=== PATIENT | female | born 1980 | race Caucasian/White ===

== ENCOUNTER 2017-11-07 10:10 | Inpatient (IN) ==
[2017-11-07] MEDS ORDERED: CeFAZolin Premix DUPLEX 2,000 MG/50 ML BAG IVPB ONE (10:35)
[2017-11-07] MEDS ORDERED: Ringers Solution, Lactated 1,000 ML IVC ONE (10:35)
[2017-11-07] MEDS ORDERED: Metoclopramide 10 MG/2 ML VIAL IVP ONE (10:35)
[2017-11-07] MEDS ORDERED: Famotidine 20 MG/2 ML VIAL IVP ONE (10:35)
[2017-11-07] MEDS ORDERED: Ringers Solution, Lactated 1,000 ML IVC SCH ×2 (10:45→15:39)
[2017-11-07 11:06] LABS: Basophils % 0.3 %; Eosinophils # 0.1 K/mcL (0.0-0.6); Eosinophils % 1.1 %; Hematocrit 29.8 % (35.3-44.9); Hemoglobin 10.2 g/dL (11.5-15.4); Immature Granulocytes % 1.4 % (0-4); Lymphocytes # 1.7 K/mcL (0.6-4.6); Lymphocytes % 19.1 %; Mean Corpuscular HGB Conc 34.2 g/dL (31.6-35.5); Mean Corpuscular Hemoglobin 30.1 pg (28.0-33.3); Mean Corpuscular Volume 87.9 fL (83.0-100.0); Mean Platelet Volume 9.4 fL (9.4-12.4); Monocytes # 0.7 K/mcL (0.0-1.3); Monocytes % 7.7 %; Neutrophils # 6.2 K/mcL (1.6-8.9); Platelet Count 181 K/mcL (140-400); Red Blood Count 3.39 M/mcL (3.82-4.97); Segmented Neutrophils % 70.4 %
--- NOTE | 2017-11-07 11:26 | Anesthesia Evaluation PreOp ---
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 Any Significant HX Other Medical History: Other (Anxiety, Full placenta previa) Anesthesia History: No Prior Anesthetic Complications, Past Anesthesia (ventral hernia repair upper abdomen) : Yes Alcohol Use: none Drug use: none Medications and Allergies Ibuprofen [Motrin] 600 mg PO TID PRN #20 tablet 03/15/15 [Rx] Pnv95/Ferrous Fumarate/FA [ Vitamin Tablet] 1 each PO DAILY 11/07/17 [ History] 3 Allergy/AdvReac Type Severity Reaction Status Date / Time acetaminophen [From Vicodin] Allergy Hives Verified 05/08/17 14:05 hydrocodone [From Vicodin] Allergy Hives Verified 05/08/17 14:05 - Meds/Allergy Pre-op Review Medications Reviewed: Yes Allergies Reviewed: Yes Beta Blockers on Current Med List: No Anesthesia Results - Labs 11/07/17 10:36 Anesthesia Exam BP 109/73 P 112 T 97.5 R 16 Height: 5'2" Weight: 77.4kg NPO (# of Hours): 12 Pain Scale: 0 Pain Scale Used: Numeric (1 - 10) - HEENT Pupil (Motor): Pupils equal Mallampati: II Teeth: Missing Oral Opening: Greater than 3 - TELEVISION MAINTENANCE WORKER LOC: Oriented TELEVISION MAINTENANCE WORKER Motor: Normal RUE, Normal LUE, Normal RLE, Normal LLE, Normal Face TELEVISION MAINTENANCE WORKER Sensory: Normal: RUE, LUE, RLE, LLE, Face - Cardiac Rhythm: Regular Murmur: None JVD: No Carotid Bruit: No - Pulmonary Breath Sounds: bilateral Clear Respiratory Effort: Symmetrical Anesthesia Assess/Plan ASA Score: 2 Modified Dennise Scale for Level of Consciousness: Cooperative, oriented, and tranquil Anesthetic Plan: Regional Autologous Blood: Yes Monitoring Plan: Standard Monitors Recovery Plan: PACU
--- NOTE | 2017-11-07 11:40 | OB/GYN History & Physical ---
Date of Encounter: 11/07/17 Time of Encounter: 11:38 Assessment and Plan (1) and not yet delivered in third trimester Current visit: Yes Status: Acute (2) 37 weeks gestation of Current visit: Yes Status: Acute (3) Complete placenta previa nos or without hemorrhage, third trimester Current visit: Yes Status: Acute Patient will be scheduled for a primary low transverse section (4) Advanced maternal age (AMA) in Current visit: Yes Status: Acute History of Present Illness HPI: Ms. Martines is a 37 year old female 5 para 4014 at 37-2/7 weeks who presented for primary low transverse section secondary to complete previa. Patient is being followed by maternal medicine and they recommended patient be delivered at 37 weeks. She has had no bleeding during this and no contractions patient is wanting a tubal ligation she has signed tubal papers the risks and benefits of the tubal ligation had been explained to patient with failure rate of 5-8 per thousand with increased risk of ectopic if was to occur. Patient is Rh+, rubella positive, GBS negative, Varicella negative Past Med Surg Social Fam HX - Past Medical History Source: patient, old records reviewed Medical history: no medical history Additional medical history: asthma Psychiatric history: anxiety, depression, prior suicide attempt, previous psychiatric hospitalization - Past Surgical History Surgical History: non-contributory Additional surgical history: Hernia repair, teeth extraction - Social History Smoking Status: Never smoker Smokeless Tobacco Status: No Alcohol use: none Drug use: none Occupational status: unemployed Current living situation: Home - Independent Activity Level: Independent ambulation Recent Out of Country Travel Within the Last 8 Weeks: No Exposure or Possible Exposure to Illness During Travel: No - Additional Family History Additional family history: Family history noncontributory Obstetrical History - Pregnancies : 5 Para: 4 Term: 4 : 0 Ab's: 1 Livin Medications and Allergies Ibuprofen [Motrin] 600 mg PO TID PRN #20 tablet 03/15/15 [Rx] Pnv95/Ferrous Fumarate/FA [ Vitamin Tablet] 1 each PO DAILY 11/07/17 [ History] 3 Allergy/AdvReac Type Severity Reaction Status Date / Time acetaminophen [From Vicodin] Allergy Hives Verified 05/08/17 14:05 hydrocodone [From Vicodin] Allergy Hives Verified 05/08/17 14:05 Review of System OB All systems PM: reviewed and no additional remarkable complaints except as stated Exam - Constitutional Constitutional: well developed, well nourished, no acute distress, average body habitus - HEENT HEENT: EOMI, PERRL, Mucus Membranes Moist - Neck Neck exam: full ROM - Lungs Respiratory exam: CTAB - Cardiovascular Cardiovascular exam: RRR - Cervix Dilation: 0 Effacement: 50 Station: -3 Results Result Diagrams: 11/07/17 10:36 Abnormal lab results RBC 3.39 M/mcL (3.82-4.97) L 11/07/17 10:36 Hgb 10.2 g/dL (11.5-15.4) L 11/07/17 10:36 Hct 29.8 % (35.3-44.9) L 11/07/17 10:36 All other labs normal.
[2017-11-07] MEDS ORDERED: *HR* Morphine Sulfate/PF 10 MG/10 ML AMPUL ONE (12:12)
[2017-11-07] MEDS ORDERED: *HR* Phenylephrine 10 MG/ML VIAL ONE (12:14)
[2017-11-07] MEDS ORDERED: Lidocaine -MPF 2% 5 ML VIAL ONE (12:18)
[2017-11-07] MEDS ORDERED: Bupivacaine/PF 0.75% in Dex 2 ML AMPUL INFILT ONE (12:19)
[2017-11-07] MEDS ORDERED: Acetaminophen IV 1,000 MG/100 ML INFUS..BTL IVPB STA (12:28)
[2017-11-07] MEDS ORDERED: Ibuprofen 400 MG TABLET PO PRN (12:29)
[2017-11-07] MEDS ORDERED: *HR* HYDROmorphone (PF) 1 MG/ML SYRINGE IVP PRN (12:29)
[2017-11-07] MEDS ORDERED: *HR* Morphine 2 MG/ML SYRINGE IVP PRN (12:29)
[2017-11-07] MEDS ORDERED: *HR* OxyCODONE/APAP 5/325 TABLET PO PRN (12:29)
[2017-11-07] MEDS ORDERED: *HR* Magnesium Sulfate 1 GM/2 ML VIAL ONE (12:32)
[2017-11-07] MEDS ORDERED: Naloxone 0.4 MG/ML INJ IVP PRN (12:36)
[2017-11-07] MEDS ORDERED: Ondansetron 4 MG/2 ML VIAL IVP PRN ×2 (12:36→15:39)
[2017-11-07] MEDS ORDERED: Ringers Solution, Lactated 1,000 ML ONE (12:37)
--- NOTE | 2017-11-07 12:53 | Anesthesia Procedures ---
Date of Encounter: 11/07/17 Time of Encounter: 12:51 Procedures: Anesthesia - Epidural/Spinal Patient ID/Chart reviewed: Yes Patient examined: Yes OB Eval: Gestational age: 37.2 OB Eval: : 5 OB Eval: Hx Para: 4 Consent Obtained: Yes Site Prep: Aseptic Technique, Sterile prep and drape, Povidone-Iodine 1% Patient position: upright Local Anesthetic: Lidocaine 1% Amount of Local Anesthetic used: 3 Interspace Used: L4-L5 Loss of Resistance (ZACHARY): No Blood: No CSF: Yes Paresthesia: No Spinal Needle Gauge: 25 Spinal Dose: Bupivicaine 0.75% 1.4ml morphine 250mcg Procedure: Intrathecal dose administered 1st pass in upright position without any immediate noted complications. VSS throughout. Level T4 Vitals + FHT's: See anesthesia record
[2017-11-07] MEDS ORDERED: Dexamethasone 4 MG/ML VIAL ONE (13:00)
[2017-11-07] MEDS ORDERED: Ondansetron 4 MG/2 ML VIAL ONE (13:00)
[2017-11-07] MEDS ORDERED: Oxytocin 20 units/ LR 1000 mL 20 UNIT/1,000 ML BAG IVC ONE (13:30)
--- NOTE | 2017-11-07 13:34 | OB/GYN Procedure Note ---
Section - Date of procedure: 11/07/17 Preop diagnosis: desires repeat , other (Intrauterine at 37-2 /7 weeks, complete placenta previa, desires sterilization) Post-op diagnosis: same Procedure: primary low transverse, bilateral tubal ligation Surgeon: Tanner Orantes Blood Loss: 1,000 Was there an medical assistant per diem present: Yes Covered Buckle Assembler: Francisco Cespedes (OMS 3) Anesthesiologist: Urmila Elizondo Quick Print Operator: Jac Izaguirre Anesthesia Type: Spinal section complications: none Disposition: L&D Recovery Room Specimens: Right tube segment, Left tube segment - Infant (s) Infant A Infant Delivery Date: 11/07/17 Delivery Time: 12:43 Presentation: vertex Position: KELLY Route of delivery: Gender: Male Viability: Viable Pounds: 7 Ounces: 4 Gram Weight: 3.28 kg at 1 minute: 7 at 5 minutes: 9 Shoulder Dystocia: not encountered Placenta: spontaneous Cord: 3 umbilical vessels - Narrative Narrative: Patient is a 37-year-old 5 para 4 37-2/7 weeks who presented for primary low transverse section secondary to complete placenta previa patient has been followed by maternal medicine and they wanted to be delivered at 37 weeks patient has had no bleeding or cramping during this patient wanted a tubal ligation risks and benefits of the tubal were expanded to the patient with a failure rate of 5-8 per thousand with increased risk of ectopic if was to occur. Procedure: Patient was taken to the operating room where spinal anesthesia was found be adequate. She was placed in the dorsal supine position with leftward tilt prepped and draped in usual fashion. Timeout was then obtained. Pfannenstiel incision was made with a scalpel carried down to the underlying tissue to the fascia was then applied. The fascia was nicked in midline extended laterally with the Madrid scissors. The superior and inferior edges of the fascia were grasped tented up and dissected off the rectus muscles. Rectus muscles were in the midline parietal peritoneum was identified tented up and entered sharply. This is extended superiorly inferiorly with Metzenbaum scissors. The bladder blade was inserted the vesicouterine peritoneum was identified tented up and entered sharply. This was extended laterally the bladder flap created digitally. The lower uterine segment was incised with a scalpel extended laterally with digital manipulation. We did go through the anterior edge of the placenta but we were able to get around it we then delivered the infant the cord was clamped and cut and was handed off to waiting pediatric team. Cord blood was not needed at this time percent was then delivered spontaneously 3 vessels cord. Uterus was exteriorized cleaned of all clots and debris. The lower uterine segment was then closed using 0 Vicryl in a running locking stitch prior to the closure. Good hemostasis was noted patient presented to the fallopian tubes each tube was grasped at the ampullar region and a 2 cm portion of the tube was then suture ligated with 0 plain including the fimbria this was suture ligated 2 and the knuckle was excised. This was repeated on the opposite side in a similar fashion. Good hemostasis was noted bilaterally both ovaries are normal. The uterus was returned to the abdomen the gutters were cleaned of all clots and debris and copiously irrigated with water. No active bleeding was noted. The fascia was then closed using a #1 stratafix in a running stitch and then the skin was closed using a 4-0 Vicryl in subcuticular manner. All needles lap sponge counts were correct 3 patient did receive preoperative antibiotics. She was taken to the recovery room and will be observed for 2 hours before being taken floor.
--- NOTE | 2017-11-07 14:25 | Anesthesia Evaluation Post Op ---
Date of Encounter: 11/07/17 Time of Encounter: 14:20 - Vital Signs Vital Signs: BP 89/61 P 97 T 97.2 R 16 - Lungs Lungs: Clear Ascult./Percussion - Airway Airway: Non-obstructed - Cardiovascular Regular Rate - Mental Status Mental Status: Alert & Oriented, Answers Appropriately - Pain Pain Scale: 2 Pain Scale used: Numeric (1 - 10) - Nausea Vomiting Nausea Vomiting: Responds to treatment with oral meds - Hydration Hydration: NPO, Bradshaw catheter - Discharge PostOp Status: Transfer Patient to floor
[2017-11-07] MEDS ORDERED: *HR* OxyCODONE Immed Rel 5 MG TABLET PO PRN (15:39)
[2017-11-07] MEDS ORDERED: Metoclopramide 10 MG/2 ML VIAL IVP PRN (15:39)
[2017-11-07] MEDS ORDERED: Oxytocin 20 units/ LR 1000 mL 20 UNIT/1,000 ML BAG IVC SCH (15:39)
[2017-11-07] MEDS ORDERED: Sennosides 8.6 MG TABLET PO PRN (15:39)
[2017-11-07] MEDS ORDERED: Simethicone 80 MG TAB.CHEW PO PRN (15:39)
[2017-11-07] MEDS: *HR* OxyCODONE/APAP 5/325 TABLET PO PRN (22:52)
[2017-11-07] MEDS: Ibuprofen 600 MG TABLET PO PRN (22:53)
[2017-11-08 07:00] LABS: Basophils % 0.1 %; Eosinophils # 0.1 K/mcL (0.0-0.6); Eosinophils % 0.4 %; Hematocrit 23.1 % (35.3-44.9); Immature Granulocytes % 1.6 % (0-4); Lymphocytes # 2.5 K/mcL (0.6-4.6); Mean Corpuscular HGB Conc 34.2 g/dL (31.6-35.5); Mean Corpuscular Hemoglobin 30.9 pg (28.0-33.3); Mean Corpuscular Volume 90.2 fL (83.0-100.0); Mean Platelet Volume 9.7 fL (9.4-12.4); Monocytes % 7.7 %; Neutrophils # 9.4 K/mcL (1.6-8.9); Platelet Count 177 K/mcL (140-400); Red Blood Count 2.56 M/mcL (3.82-4.97); Red Cell Distribution Width 13.6 % (11.5-14.5); Segmented Neutrophils % 71.2 %
[2017-11-08 07:02] LABS: Hemoglobin 7.9 g/dL (11.5-15.4)
[2017-11-08] MEDS: Prenatal Vit/FA 1 EACH TABLET PO SCH (08:09)
[2017-11-08] MEDS: *HR* OxyCODONE/APAP 5/325 TABLET PO PRN ×4 (08:10→23:38)
--- NOTE | 2017-11-08 09:10 | OB/GYN Progress Note ---
Date of Encounter: 11/08/17 Time of Encounter: 09:08 - Assessment and Plan (1) Status post primary low transverse section Current Visit: Yes Status: Acute Continue routine care Abdominal binder as needed Anticipate discharge home tomorrow (2) anemia Current Visit: Yes Status: Acute Increase iron to twice daily Subjective - Subjective Principal diagnosis: s/p PLTCS Interval history: Feeling well. Out of bed without dizziness. Using abdominal binder. Cramping minimal, using ibuprofen and Percocet. Would like to try and breast-feed today. Has not voided yet. Passing flatus, no BM yet. Tolerating regular diet. Patient reports: appetite normal, pain well controlled, ambulating normally, no voiding normally : doing well, bottle feeding Objective - Vital Signs Latest vital signs: Vital Signs Temp Pulse Pulse Resp BP Pulse Ox 11/08/17 08:42 97.6 F 98 18 99/64 97 11/08/17 04:00 98.5 F 95 16 102/67 98 11/08/17 00:00 98.7 F 97 14 98/60 98 11/07/17 20:10 98.4 F 89 14 106/70 99 11/07/17 19:01 98.2 F 92 92 16 110/70 98 11/07/17 19:00 98.2 F 92 16 110/70 98 11/07/17 17:54 97.9 F 100 100 16 108/75 99 11/07/17 17:45 97.9 F 100 16 108/75 99 11/07/17 16:45 98.4 F 88 14 106/76 98 11/07/17 16:20 97.6 F 93 16 107/76 98 11/07/17 16:15 97.6 F 93 16 107/76 98 11/07/17 15:45 97.4 F L 95 16 104/70 97 Intake and Output 11/07/17 11/08/17 11/08/17 23:59 07:59 15:59 Intake Total 240 / 240 Output Total 850 / 850 300 / 300 Balance -850 / -850 -60 / -60 Intake: Oral 240 / 240 Output: Catheter 850 / 850 300 / 300 Other: Weight 74.752 kg Patient Weight 11/08/17 23:59 Weight 74.752 kg - Exam Lungs: bilateral: normal Chest: Normal S1, Normal S2 Extremities: Present: normal Abdomen: Present: normal appearance, soft Incision: Present: normal, dry, dressed Uterus: Present: normal, firm Fundal Height: 0 - Labs Labs: Laboratory Results - last 24 hr 11/07/17 11/07/17 11/08/17 10:36 10:44 06:39 WBC 8.8 13.2 H RBC 3.39 L 2.56 L Hgb 10.2 L 7.9 L D Hct 29.8 L 23.1 L MCV 87.9 90.2 MCH 30.1 30.9 MCHC 34.2 34.2 RDW 14.0 13.6 Plt Count 181 177 MPV 9.4 9.7 Immature Gran % 1.4 1.6 Seg Neutrophils % 70.4 71.2 Lymphocytes % 19.1 19.0 Monocytes % 7.7 7.7 Eosinophils % 1.1 0.4 Basophils % 0.3 0.1 Neutrophils # 6.2 9.4 H Lymphocytes # 1.7 2.5 Monocytes # 0.7 1.0 Eosinophils # 0.1 0.1 Basophils # 0.0 0.0 Blood Type B POSITIVE Antibody Screen NEGATIVE Crossmatch See Detail
[2017-11-08] MEDS: Ibuprofen 600 MG TABLET PO PRN (19:46)
[2017-11-09] MEDS: *HR* OxyCODONE/APAP 5/325 TABLET PO PRN ×2 (03:53→07:58)
[2017-11-09] MEDS: Prenatal Vit/FA 1 EACH TABLET PO SCH (07:58)
[2017-11-09 08:23] VITALS: BP 125/82
--- NOTE | 2017-11-09 08:30 | Discharge Summary ---
Date of Encounter: 11/09/17 Time of Encounter: 08:25 - Discharge Diagnosis (1) History of bilateral tubal ligation Priority: Secondary Status: Acute Comments: continue routine postop care (2) anemia Priority: Secondary Status: Acute Comments: continue ferrous sulfate daily (3) Status post primary low transverse section Priority: Primary Status: Acute Comments: Continue routine /postop care discharge home today follow up with Dr. Baker in 2 weeks for incision check (4) Breast feeding status of mother Priority: Secondary Status: Acute Comments: support prn - Discharge Medications Prescriptions: OxyCODONE/APAP 5/325 [Percocet 5/325 MG] 1 each PO Q4HR PRN 5 Days #30 tablet PRN Reason: Moderate pain 4-6 Ibuprofen [Motrin] 600 mg PO Q6HR PRN #60 tablet PRN Reason: Cramping Breast Pump [BREAST PUMP] 1 each .ROUTE AD #1 each Ferrous Sulfate 325 mg PO BIDWM #60 tablet Home Medications: Ibuprofen [Motrin] 600 mg PO TID PRN #20 tablet 03/15/15 [Rx] Pnv95/Ferrous Fumarate/FA [ Vitamin Tablet] 1 each PO DAILY 11/07/17 [ History] Breast Pump [BREAST PUMP] 1 each .ROUTE AD #1 each 11/09/17 [Rx] Docusate [Colace] 100 mg PO BID capsule 11/09/17 [Rx] Ferrous Sulfate 325 mg PO BIDWM #60 tablet 11/09/17 [Rx] Ibuprofen [Motrin] 600 mg PO Q6HR PRN #60 tablet 11/09/17 [Rx] OxyCODONE/APAP 5/325 [Percocet 5/325 MG] 1 each PO Q4HR PRN 5 Days #30 tablet [Rx] Vit/FA 1 each PO DAILY tablet 11/09/17 [Rx] Allergies/Adverse Reactions: 3 Allergy/AdvReac Type Severity Reaction Status Date / Time acetaminophen [From Vicodin] Allergy Hives Verified 05/08/17 14:05 hydrocodone [From Vicodin] Allergy Hives Verified 05/08/17 14:05 Data Procedures and tests throughout hospitalization: Laboratory Tests 11/07/17 11/07/17 11/08/17 10:36 10:44 06:39 WBC 8.8 13.2 H RBC 3.39 L 2.56 L Hgb 10.2 L 7.9 L D Hct 29.8 L 23.1 L MCV 87.9 90.2 MCH 30.1 30.9 MCHC 34.2 34.2 RDW 14.0 13.6 Plt Count 181 177 MPV 9.4 9.7 Immature Gran % 1.4 1.6 Seg Neutrophils % 70.4 71.2 Lymphocytes % 19.1 19.0 Monocytes % 7.7 7.7 Eosinophils % 1.1 0.4 Basophils % 0.3 0.1 Neutrophils # 6.2 9.4 H Lymphocytes # 1.7 2.5 Monocytes # 0.7 1.0 Eosinophils # 0.1 0.1 Basophils # 0.0 0.0 Blood Type B POSITIVE Antibody Screen NEGATIVE Crossmatch See Detail Date of admission: 11/07/17 10:10 Primary care physician: Salvador Stevens MD Discharging clinician: Anay Bailey Anticipated date of discharge: 11/09/17 - Patient Status Disposition: Home, Self-Care Condition: Good Functional capacity at discharge: independent ambulation - Discharge Instructions Follow Up With: Salvador Stevens MD [Primary Care Provider] - Tanner Baker DO [Partnered Physician] - - Diet and Activity Activity: increase activity as tolerated Diet: regular diet Hospital Course Reason for admission: section Delivery: section Other procedures: tubal ligation complications: none Discharge diagnosis: IUP at term delivered baby: male (breast feeding) Time Attestation: Total time spent providing and/or coordinating discharge services: Time Spent: Less than 30 minutes - VTE Documentation of Mechanical Device: Intermittent pneumatic compression device Exam - Constitutional Vitals: Temp Pulse Resp BP Pulse Ox 98.2 F 87 14 125/82 100 11/09/17 08:23 11/09/17 08:23 11/09/17 08:23 11/09/17 08:23 11/09/17 08:23 General appearance IM: A&O X 3, pleasant, answers questions appropriately - Respiratory Respiratory exam: Present: CTAB - Cardiovascular Cardiovascular exam IM: Present: RRR, +S1, +S2 - GI/Abdominal GI/Abdominal exam IM: normal bowel sounds Incision: normal, dry, intact - Uterine Tone: Firm Uterus Position: 2 Fingers Below Umbilicus, Midline - Extremities Exam Extremities exam IM: Present: full ROM, normal capillary refill, normal inspection - Neurological Exam Neurological exam: alert, oriented X3, reflexes normal
== END 2017-11-09 12:58 | disposition home or self-care (01) | DRG 540 ==
LOC: 1NENULAB 10:10 → 1NENUOBS 15:38
PROVIDERS: ADMIT Obstetrics & Gynecology; ATTEND Obstetrics & Gynecology

== ENCOUNTER 2021-10-17 08:27 | Observation (INO) ==
[2021-10-17] MEDS ORDERED: *HR* Adenosine 6 MG/2 ML VIAL IVP ONE ×2 (08:41→08:48)
[2021-10-17] MEDS ORDERED: *HR* Adenosine 6 MG/2 ML SYRINGE IVP ONE (08:41)
[2021-10-17] MEDS ORDERED: 0.9 % Sodium Chloride 1,000 ML IV ONE (08:48)
[2021-10-17] MEDS ORDERED: Ondansetron 4 MG/2 ML VIAL IVP ONE (08:48)
[2021-10-17] MEDS ORDERED: Morphine Sulfate 2 MG/ML SYRINGE IVP ONE ×2 (08:53→10:17)
[2021-10-17] MEDS ORDERED: Aspirin 325 MG TABLET PO ONE (08:53)
[2021-10-17] MEDS ORDERED: diazePAM 10 MG/2 ML SYRINGE IVP ONE (08:54)
[2021-10-17 09:01] LABS: Basophils % 0.4 %; Eosinophils # 0.1 K/mcL (0.0-0.6); Eosinophils % 0.8 %; Hematocrit 39.5 % (35.3-44.9); Hemoglobin 12.8 g/dL (11.5-15.4); Immature Granulocytes % 0.7 % (0-4); Lymphocytes # 2.8 K/mcL (0.6-4.6); Lymphocytes % 26.6 %; Mean Corpuscular HGB Conc 32.4 g/dL (31.6-35.5); Mean Corpuscular Hemoglobin 29.7 pg (28.0-33.3); Mean Corpuscular Volume 91.6 fL (83.0-100.0); Mean Platelet Volume 10.5 fL (9.4-12.4); Neutrophils # 6.7 K/mcL (1.6-8.9); Nucleated Red Blood Cells 0.3 /100 WBC (0); Platelet Count 202 K/mcL (140-400); Red Blood Count 4.31 M/mcL (3.82-4.97); Red Cell Distribution Width 13.3 % (11.5-14.5); Segmented Neutrophils % 62.5 %; White Blood Count 10.7 K/mcL (4.3-11.1)
[2021-10-17 09:22] LABS: Alanine Aminotransferase 180 Units/L (7-52); Albumin 3.9 g/dL (3.5-5.7); Albumin/Globulin Ratio 1.6 (1.1-2.2); Alkaline Phosphatase 125 Units/L (34-104); Aspartate Amino Transferase 165 Units/L (13-39); BUN/Creatinine Ratio 14 (6-26); Bilirubin,Total 0.5 mg/dL (0.3-1.0); Blood Urea Nitrogen 20 mg/dL (6-20); Calcium 8.4 mg/dL (8.6-10.3); Carbon Dioxide 19 mEq/L (23-29); Chloride 108 mEq/L (98-107); Globulin 2.5 g/dL (2.4-3.5); Glucose 132 mg/dL (70-105); Magnesium 2.1 mg/dL (1.6-2.6); Osmolality,Calculated 294 (280-300); Potassium 3.8 mEq/L (3.5-5.1); Sodium 140 mEq/L (136-145); Total Protein 6.4 g/dL (6.4-8.9); eGFR For African Americans 49 (> 60); eGFR For Non-African Americans 41 (> 60)
[2021-10-17 09:33] LABS: Troponin I 0.08 ng/mL (< 0.04)
[2021-10-17] MEDS ORDERED: Iopamidol - 370 500 ML MLS IVP ONE (10:17)
[2021-10-17] MEDS ORDERED: Ondansetron 4 MG/2 ML VIAL IVP PRN (10:31)
[2021-10-17] MEDS ORDERED: Naloxone 0.4 MG/ML INJ IVP PRN (10:31)
[2021-10-17] MEDS ORDERED: *HR* Heparin 5,000 UNIT/ML VIAL IVP PRN ×2 (10:32)
[2021-10-17] MEDS ORDERED: Perflutren Lipid Microsphere 1.3 ML in 0.9 % Sodium Chloride 8.7 ML IVP PRN (10:32)
[2021-10-17] MEDS ORDERED: ALPRAZolam 0.5 MG TABLET PO PRN (10:33)
[2021-10-17 11:04] LABS: Ethanol < 10 mg/dL (Less than 10)
[2021-10-17] MEDS: Heparin 25,000UNIT/250ML 1/2NS 25,000 UNIT/250 ML IV.SOLN IVC SCH (11:45)
[2021-10-17] MEDS: Furosemide 20 MG/2 ML VIAL IVP SCH (11:46)
[2021-10-17 13:08] LABS: Amphetamine Screen,Urine Negative ng/mL (Cutoff=1000); Barbiturate Screen,Urine Negative ng/mL (Cutoff=200); Benzodiazepines Screen,Urine Negative ng/mL (Cutoff=200); Cannabinoid Screen,Urine Negative ng/mL (Cutoff = 50); Cocaine Screen,Urine Negative ng/mL (Cutoff= 300); Opiate Screen,Urine Positive ng/mL (Cutoff=300); Phencyclidine Screen,Urine Negative ng/mL (Cutoff=25)
[2021-10-18 01:38] LABS: Basophils % 0.5 %; Eosinophils # 0.3 K/mcL (0.0-0.6); Eosinophils % 4.2 %; Hematocrit 36.2 % (35.3-44.9); Hemoglobin 11.8 g/dL (11.5-15.4); Immature Granulocytes % 0.9 % (0-4); Lymphocytes # 2.4 K/mcL (0.6-4.6); Mean Corpuscular HGB Conc 32.6 g/dL (31.6-35.5); Mean Corpuscular Hemoglobin 29.6 pg (28.0-33.3); Mean Corpuscular Volume 90.7 fL (83.0-100.0); Mean Platelet Volume 10.1 fL (9.4-12.4); Monocytes # 0.5 K/mcL (0.0-1.3); Monocytes % 6.2 %; Neutrophils # 4.6 K/mcL (1.6-8.9); Platelet Count 171 K/mcL (140-400); Red Blood Count 3.99 M/mcL (3.82-4.97); Red Cell Distribution Width 13.3 % (11.5-14.5); Segmented Neutrophils % 58.2 %; White Blood Count 7.9 K/mcL (4.3-11.1)
[2021-10-18 02:12] LABS: BUN/Creatinine Ratio 16 (6-26); Blood Urea Nitrogen 19 mg/dL (6-20); Calcium 7.8 mg/dL (8.6-10.3); Carbon Dioxide 22 mEq/L (23-29); Chloride 110 mEq/L (98-107); Glucose 89 mg/dL (70-105); Magnesium 2.2 mg/dL (1.6-2.6); Osmolality,Calculated 292 (280-300); Phosphorous 3.7 mg/dL (2.7-4.5); Potassium 3.9 mEq/L (3.5-5.1); Sodium 140 mEq/L (136-145); eGFR For African Americans > 60 (> 60); eGFR For Non-African Americans 51 (> 60)
[2021-10-18 02:13] LABS: Albumin 3.2 g/dL (3.5-5.7); Albumin/Globulin Ratio 1.3 (1.1-2.2); Bilirubin,Indirect 0.4 mg/dL (0.0-1.0); Bilirubin,Total 0.4 mg/dL (0.3-1.0); Globulin 2.4 g/dL (2.4-3.5); Total Protein 5.6 g/dL (6.4-8.9)
[2021-10-18] MEDS: Furosemide 20 MG/2 ML VIAL IVP SCH (07:45)
[2021-10-18] MEDS: Aspirin 81 MG TAB.CHEW PO SCH (07:45)
[2021-10-18] MEDS: Heparin 25,000UNIT/250ML 1/2NS 25,000 UNIT/250 ML IV.SOLN IVC SCH (09:59)
[2021-10-18 11:21] LABS: Adenovirus Not Detected (Not Detect); Bordetella Pertussis Not Detected (Not Detect); Chlamydophila pneumoniae Not Detected (Not Detect); Coronavirus 229E Not Detected (Not Detect); Coronavirus HKU1 Not Detected (Not Detect); Coronavirus NL63 Not Detected (Not Detect); Coronavirus OC43 Not Detected (Not Detect); Human Metapneumovirus Not Detected (Not Detect); Human Rhinovirus/Enterovirus Not Detected (Not Detect); Influenza A Subtype 2009 H1 Not Detected (Not Detect); Influenza B Not Detected (Not Detect); Mycoplasma pneumoniae Not Detected (Not Detect); Parainfluenza Virus 1 Not Detected (Not Detect); Parainfluenza Virus 2 Not Detected (Not Detect); Parainfluenza Virus 3 Not Detected (Not Detect); Parainfluenza Virus 4 Not Detected (Not Detect); Respiratory Syncytial Virus Not Detected (Not Detect); SARS-CoV-2 Not Detected (Not Detect)
[2021-10-18] MEDS: DilTIAZem CD (24hr) 120 MG CAP.ER.24H PO SCH (13:19)
[2021-10-18] MEDS ORDERED: Acetaminophen 325 MG TABLET PO PRN (16:49)
[2021-10-18] MEDS: *HR* Heparin 5,000 UNIT/ML VIAL SQ SCH (17:04)
[2021-10-19 01:03] LABS: Basophils % 0.3 %; Eosinophils # 0.2 K/mcL (0.0-0.6); Eosinophils % 3.2 %; Hematocrit 37.4 % (35.3-44.9); Hemoglobin 12.2 g/dL (11.5-15.4); Immature Granulocytes % 0.6 % (0-4); Lymphocytes # 1.8 K/mcL (0.6-4.6); Lymphocytes % 24.5 %; Mean Corpuscular HGB Conc 32.6 g/dL (31.6-35.5); Mean Corpuscular Hemoglobin 29.8 pg (28.0-33.3); Mean Corpuscular Volume 91.2 fL (83.0-100.0); Mean Platelet Volume 9.6 fL (9.4-12.4); Monocytes # 0.6 K/mcL (0.0-1.3); Monocytes % 7.8 %; Neutrophils # 4.6 K/mcL (1.6-8.9); Nucleated Red Blood Cells 0.3 /100 WBC (0); Platelet Count 182 K/mcL (140-400); Segmented Neutrophils % 63.6 %; White Blood Count 7.2 K/mcL (4.3-11.1)
[2021-10-19 01:25] LABS: BUN/Creatinine Ratio 18 (6-26); Blood Urea Nitrogen 22 mg/dL (6-20); Carbon Dioxide 22 mEq/L (23-29); Chloride 112 mEq/L (98-107); Glucose 96 mg/dL (70-105); Osmolality,Calculated 293 (280-300); Potassium 4.2 mEq/L (3.5-5.1); Sodium 140 mEq/L (136-145); eGFR For African Americans > 60 (> 60); eGFR For Non-African Americans 50 (> 60)
[2021-10-19] MEDS: *HR* Heparin 5,000 UNIT/ML VIAL SQ SCH (05:15)
[2021-10-19 06:51] VITALS: O2SAT 95
[2021-10-19] MEDS: DilTIAZem CD (24hr) 120 MG CAP.ER.24H PO SCH (08:30)
[2021-10-19] MEDS: Aspirin 81 MG TAB.CHEW PO SCH (08:30)
[2021-10-19] MEDS: Furosemide 20 MG/2 ML VIAL IVP SCH (08:30)
[2021-10-19 10:46] VITALS: BP 96/63; PULSE 92; TEMP 98.3
[2021-10-20] MEDS ORDERED: Furosemide 20 MG TABLET PO SCH (09:00)
== END 2021-10-19 14:24 | disposition home or self-care (01) ==
LOC: EMEROOARM 08:27 → 2NENU 08:27 → 2NNU 10:16 → 2ANU 10-18 23:07
PROVIDERS: ADMIT Internal Medicine; ATTEND Internal Medicine

== ENCOUNTER 2022-01-15 08:15 | Observation (INO) ==
[2022-01-15 08:43] LABS: Basophils % 0.5 %; Eosinophils # 0.3 K/mcL (0.0-0.6); Eosinophils % 3.4 %; Hematocrit 43.4 % (35.3-44.9); Hemoglobin 14.4 g/dL (11.5-15.4); Immature Granulocytes % 0.4 % (0-4); Lymphocytes # 2.8 K/mcL (0.6-4.6); Lymphocytes % 35.6 %; Mean Corpuscular HGB Conc 33.2 g/dL (31.6-35.5); Mean Corpuscular Hemoglobin 29.7 pg (28.0-33.3); Mean Corpuscular Volume 89.5 fL (83.0-100.0); Mean Platelet Volume 9.1 fL (9.4-12.4); Monocytes # 0.5 K/mcL (0.0-1.3); Monocytes % 6.8 %; Neutrophils # 4.3 K/mcL (1.6-8.9); Platelet Count 260 K/mcL (140-400); Red Blood Count 4.85 M/mcL (3.82-4.97); Red Cell Distribution Width 12.6 % (11.5-14.5); Segmented Neutrophils % 53.3 %
[2022-01-15 08:51] LABS: INR 1.1; Prothrombin Time 11.8 Seconds (9.4-12.1)
[2022-01-15 08:53] LABS: Activated Partial Thrombo Time 31.4 Seconds (26.0-36.0)
[2022-01-15 09:04] LABS: Calcium 9.1 mg/dL (8.6-10.3)
[2022-01-15 09:11] LABS: Troponin I 0.05 ng/mL (< 0.04)
[2022-01-15] MEDS ORDERED: *HR* Heparin 5,000 UNIT/ML VIAL IVP ONE ×2 (09:14→13:41)
[2022-01-15] MEDS ORDERED: *HR* Heparin 5,000 UNIT/ML VIAL IVP PRN ×3 (09:14→13:41)
[2022-01-15] MEDS ORDERED: Heparin 25,000UNIT/250ML 1/2NS 25,000 UNIT/250 ML IV.SOLN IVC SCH (09:15)
[2022-01-15] MEDS ORDERED: Aspirin 325 MG TABLET PO ONE (09:22)
[2022-01-15 09:33] LABS: Heparin anti-factor XA UFH < 0.04 IU/mL (0.30-0.70)
[2022-01-15 09:58] LABS: Hemoglobin 13.6 g/dL (11.5-15.4); Mean Corpuscular HGB Conc 33.2 g/dL (31.6-35.5); Mean Corpuscular Hemoglobin 29.6 pg (28.0-33.3); Mean Corpuscular Volume 89.3 fL (83.0-100.0); Mean Platelet Volume 9.2 fL (9.4-12.4); Platelet Count 261 K/mcL (140-400); Red Blood Count 4.59 M/mcL (3.82-4.97); Red Cell Distribution Width 12.6 % (11.5-14.5); White Blood Count 6.9 K/mcL (4.3-11.1)
[2022-01-15] MEDS ORDERED: Naloxone 0.4 MG/ML INJ IVP PRN (12:38)
[2022-01-15 13:21] LABS: Troponin I 0.05 ng/mL (< 0.04)
[2022-01-15] MEDS ORDERED: Nitroglycerin 0.4 MG TAB.SUBL SL PRN (13:42)
[2022-01-15 14:26] LABS: Chol/HDL Ratio 5.5 (0-4.9)
[2022-01-15] MEDS: DilTIAZem CD (24hr) 120 MG CAP.ER.24H PO SCH (14:35)
[2022-01-15] MEDS: Heparin 25,000UNIT/250ML 1/2NS 25,000 UNIT/250 ML IV.SOLN IVC SCH (14:38)
[2022-01-15 14:41] LABS: Estimated Average Glucose 103 mg/dl; Hemoglobin A1C 5.2 %
[2022-01-15] MEDS: Albumin 25% 25gram/100mL 25 GM/100 ML IV.SOLN IVPB SCH (14:46)
[2022-01-15] MEDS ORDERED: 0.9 % Sodium Chloride 500 ML IVC ONE (15:02)
[2022-01-15] MEDS: Levalbuterol Neb 0.63 MG/3 ML IH SCH ×2 (15:50→22:04)
[2022-01-15] MEDS: *HR* Heparin 5,000 UNIT/ML VIAL IVP PRN (23:15)
[2022-01-16] MEDS: Albumin 25% 25gram/100mL 25 GM/100 ML IV.SOLN IVPB SCH (01:29)
[2022-01-16] MEDS: Levalbuterol Neb 0.63 MG/3 ML IH SCH ×3 (03:58→15:53)
[2022-01-16 05:59] LABS: Basophils % 0.7 %; Eosinophils # 0.3 K/mcL (0.0-0.6); Eosinophils % 4.8 %; Hematocrit 36.3 % (35.3-44.9); Immature Granulocytes % 0.3 % (0-4); Lymphocytes # 2.7 K/mcL (0.6-4.6); Lymphocytes % 44.6 %; Mean Corpuscular HGB Conc 32.5 g/dL (31.6-35.5); Mean Corpuscular Hemoglobin 29.7 pg (28.0-33.3); Mean Corpuscular Volume 91.4 fL (83.0-100.0); Mean Platelet Volume 10.2 fL (9.4-12.4); Monocytes # 0.4 K/mcL (0.0-1.3); Monocytes % 6.5 %; Neutrophils # 2.6 K/mcL (1.6-8.9); Platelet Count 188 K/mcL (140-400); Red Blood Count 3.97 M/mcL (3.82-4.97); Red Cell Distribution Width 12.4 % (11.5-14.5); Segmented Neutrophils % 43.1 %
[2022-01-16 06:00] LABS: Hemoglobin 11.8 g/dL (11.5-15.4)
[2022-01-16 06:15] LABS: Calcium 8.5 mg/dL (8.6-10.3); Phosphorous 3.4 mg/dL (2.7-4.5); Potassium 3.7 mEq/L (3.5-5.1)
[2022-01-16] MEDS ORDERED: Regadenoson 0.4 MG/5 ML SYRINGE IVP ONE (07:14)
[2022-01-16] MEDS ORDERED: Aspirin 81 MG TAB.CHEW PO SCH (09:00)
[2022-01-16] MEDS: DilTIAZem CD (24hr) 120 MG CAP.ER.24H PO SCH (10:11)
[2022-01-16 11:10] VITALS: TEMP 98.2
[2022-01-16] MEDS: *HR* Heparin 5,000 UNIT/ML VIAL IVP PRN (13:18)
[2022-01-16 14:46] VITALS: BP 99/65; PULSE 104; O2SAT 96
[2022-01-16] MEDS: Heparin 25,000UNIT/250ML 1/2NS 25,000 UNIT/250 ML IV.SOLN IVC SCH (14:53)
== END 2022-01-16 17:47 | disposition home or self-care (01) ==
LOC: EMEROOARM 08:15 → 3BNU 08:15 → SUATTDRO 12:59 → 3BNU 13:53
PROVIDERS: ADMIT Internal Medicine; ATTEND Student in an Organized Health Care Education/Training Program